=== PATIENT | female | born 1945 | race Caucasian/White ===

== ENCOUNTER → 2017-02-10 | Outpatient (CLI) | payer MEDICARE, OTHER ==
[~2017-02-10] MED LIST: ATEN-100 PO; ATEN25TA PO; BACL20TA PO; BENI20TA25 PO; DOXE100C4 PO; ESTR2TAB PO; GABA300 PO; GABA600T PO; HYDR-3583 PO; HYDR10TA16 PO; HYDR200T3 PO; LOSA100T3 PO; MELO15TA2 PO; PERC5TAB12 PO; PRAV40TA2 PO; PRAV80 OR; TRIA0.25 PO
--- NOTE | 2017-02-10 13:40 | RADRPT ---
EXAM DATE/TIME: 02/10/2017 13:20 [facility] COMPARISON: No previous studies available for comparison. INDICATIONS : Evalauate for pneumonia, pneumothorax or communicable disease. Pre op AAA repair. MEDICAL HISTORY : None. SURGICAL HISTORY : None. ENCOUNTER: Initial ACUITY: 1 day PAIN SCORE: 0/10 LOCATION: Bilateral chest FINDINGS: PA and lateral views of the chest demonstrate the lungs to be symmetrically aerated without evidence of mass, infiltrate or effusion. The cardiomediastinal contours are unremarkable. Encapsulated Osse ous structures are intact. CONCLUSION: Negative for an acute process. Cem Ch MD FACR on February 10, 2017 at 13:38 Board Certified Radiologist. This report was verified electronically.
[2017-02-10 13:57] LABS: HEMATOCRIT 39.8 % (35.0-46.0); MEAN CELL VOLUME 92.4 FL (80.0-100.0); MEAN CORPUSCULAR HEMOGLOBIN 30.4 PG (27.0-34.0); MEAN CORPUSCULAR HGB CONC 32.9 % (32.0-36.0); PLATELET COUNT 384 TH/MM3 (150-450); RED BLOOD COUNT 4.31 MIL/MM3 (4.00-5.30); RED CELL DISTRIBUTION WIDTH 14.3 % (11.6-17.2); REVIEW FLAG FINAL
[2017-02-10 14:03] LABS: INTERNATIONAL NORMALIZED RATIO 0.9 RATIO; PROTHROMBIN TIME - PATIENT 10.4 SEC (9.8-11.6)
[2017-02-10 14:17] LABS: BLOOD, URINE NEG (NEG); COMMENT (UR) CULT NOT INDICATED; CULTURE IF INDICATED CULT NOT INDICATED; GLUCOSE,URINE NEG (NEG); KETONE, URINE NEG (NEG); MUCUS URINE FEW /lpf (OCC); NITRITE,URINE NEG (NEG); PH, URINE 6.5 (5.0-8.5); SQUAMOUS EPITHELIAL CELL URINE 1 /hpf (0-5); URINE COLOR YELLOW (YELLW/STRAW)
[2017-02-10 14:28] LABS: POTASSIUM 4.5 MEQ/L (3.5-5.1)
--- NOTE | 2017-02-10 15:44 | EKG ---
Date Performed: 02/10/2017 Time Performed: 12:18:03 PTAGE: 71 years EKG: Sinus rhythm NORMAL ECG Compared to prior electrocardiogram, Premature atrial contraction no longer present. PREVIOUS TRACING : 10/26/1995 11.57 DOCTOR: Faisal Flores Interpretating Date/Time 02/10/2017 15:43:10
== END ==
LOC: CPRE 12:54
PROVIDERS: ATTEND Surgery
DX: Z01.810 Encounter for preprocedural cardiovascular examination (principal); Z01.811 Encounter for preprocedural respiratory examination; Z01.812 Encounter for preprocedural laboratory examination; I71.4 Abdominal aortic aneurysm, without rupture
CPT/HCPCS: 36415; 71020; 80048; 81001; 85027; 85610; 93005

== ENCOUNTER 2017-02-14 06:08 | Inpatient (IN) | payer MEDICARE, OTHER ==
[2017-02-14] VITALS (9 sets, daily range): BP systolic 107–142; BP diastolic 62–74; PULSE 61–72; RESP 14–16; TEMP 97.8–98; O2SAT 86–99
[~2017-02-14] VITALS: Ht 172.7 cm; Wt 77.5 kg
[~2017-02-14 06:08] MED LIST changes: -ATEN-100 PO; -BENI20TA25 PO; -GABA300 PO; -HYDR10TA16 PO; -MELO15TA2 PO; -PERC5TAB12 PO; -PRAV80 OR; -TRIA0.25 PO
[2017-02-14] MEDS ORDERED: POVIDONE IODINE 5% (ANTISEPSIS KIT) 4 APPLICATIONS EACH NARE PRN (06:30)
[2017-02-14] MEDS ORDERED: CHLORHEXIDINE GLUCONATE 2 % 1 PACK (2 CLOTHS) TOPICAL PRN (06:30)
[2017-02-14] MEDS ORDERED: METOPROLOL TARTRATE 25 MG TAB PO PRN (06:30)
[2017-02-14] MEDS ORDERED: LACTATED RINGER'S 1000 ML IV PRN (06:30)
[2017-02-14] MEDS ORDERED: SODIUM CHLORID 0.9% 500 ML IV PRN (06:30)
[2017-02-14] MEDS ORDERED: INSULIN HUMAN REGULAR 1,000 UNITS/10 ML VIAL SQ PRN (06:30)
[2017-02-14] MEDS ORDERED: THROMBIN (TOPICAL) 20,000 UNIT SPRAY KIT ONE (07:03)
[2017-02-14] MEDS ORDERED: HEPARIN SODIUM - SQ 10,000 UNITS/ML VIAL ONE ×2 (07:03→08:45)
[2017-02-14] MEDS ORDERED: VANCOMYCIN HCL 1000 MG VIAL ONE (07:03)
[2017-02-14] MEDS ORDERED: HEPARIN-NS/PF INJ 500 ML ONE (07:04)
[2017-02-14] MEDS ORDERED: ACETAMINOPHEN 1000 MG/100 ML 100 ML IV ONE (07:04)
[2017-02-14] MEDS ORDERED: ceFAZolin 2 GM PREMIX 0 ML ONE (07:04)
[2017-02-14] MEDS ORDERED: DEXMEDETOMIDINE HCL 200 MCG/2 ML VIAL ONE (07:05)
--- NOTE | 2017-02-14 07:20 | HHI.HP ---
History of Present Illness Chief Complaint: juxtarenal AAA History of Present Illness 71yo female with AAA that has been monitored for some time who has had increased AAA growth from 4.6 to 5.4 cm. No abdominal pain and no new back pain. Presents for elective repair using RP approach. Past/Family/Social History Past Medical History HTN XOL liver abscess associated with diverticulitis diverticulitis Jefferson's esophagus but pt denies reflux Past Surgical History VERONICA breast augmentation Social History + tobacco Family History no AAA Home Medications Reported Medications Doxepin (Doxepin) 100 Mg Cap, 100 MG PO HS, #30 CAP 0 Refills 02/10/17 Gabapentin (Gabapentin) 600 Mg Tab, 600 MG PO BID, #60 TAB 0 Refills 02/10/17 Hydrocodone-Acetaminophen (Hydrocodone-Acetaminophen) 10-325 mg Tab, 1 TAB PO Q4H Y for PAIN, TAB 0 Refills 02/10/17 Baclofen (Baclofen) 20 Mg Tab, 20 MG PO Q6HR for Muscle Spasm, TAB 0 Refills 02/10/17 Losartan-Hydrochlorothiazide (Losartan-Hydrochlorothiazide) 100-12.5 Mg Tab, 1 TAB PO DAILY for Blood Pressure Management, #30 TAB 0 Refills 02/10/17 Hydroxychloroquine (Hydroxychloroquine) 200 Mg Tab, 200 MG PO BID, #60 TAB 0 Refills Takw with food 02/10/17 Atenolol (Atenolol) 25 Mg Tab, 25 MG PO DAILY for Blood Pressure Management, # 30 TAB 02/10/17 Pravastatin (Pravastatin) 40 Mg Tab, 40 MG PO DAILY for Cholesterol Management, #30 TAB 0 Refills 02/10/17 Estradiol (Estradiol) 2 Mg Tab, 2 MG PO DAILY for Estrogen Supplements, #30 TAB 0 Refills 02/10/17 Discontinued Reported Medications Gabapentin (Neurontin) 300 Mg Cap, 300 MG PO TID 07/28/11 Pravastatin Sod (Pravastatin Sodium) 80 Mg Tab, 40 MG OR DAILY 07/28/11 Hydrocodone-Acetaminophen (Lortab 10) 10 Mg/500 Mg Tab, 1 TAB PO Q4-6HPRN FOR PAIN 07/28/11 Triazolam (Triazolam) 0.25 Mg Tab, 0.25 MG PO HS 07/28/11 Meloxicam (Mobic) 15 Mg Tab, 15 MG PO DAILY 07/28/11 Atenolol (Atenolol) 25 Mg Tab, 25 MG PO DAILY 07/28/11 Olmesartan Medoxomil (Benicar) 20 Mg Tab, 25 MG PO DAILY 07/28/11 Coded Allergies: ceftriaxone (Verified Allergy, Severe, 02/14/17) diclofenac (Verified Allergy, Severe, 02/14/17) methocarbamol (Verified Allergy, Severe, 02/14/17) morphine (Verified Allergy, Severe, 02/14/17) Review of Systems Constitutional: DENIES: Fever, Weight loss, Chills Cardiovascular: DENIES: Chest pain, Lower Extremity Edema, Orthopnea, Claudication Gastrointestinal: DENIES: Abdominal pain Musculoskeletal: COMPLAINS OF: Joint pain, Back pain Physical Exam Vitals/I&O Date Time Temp Pulse Resp B/P (MAP) Pulse Ox O2 Delivery O2 Flow Rate FiO2 02/14/17 06:52 98.6 69 20 115/72 (86) 94 Neuro: alert, oriented, no distress HEENT: NC/AT, wears glasses Neck: no JVD Trachea midline Heart: reg rate, no M Lungs: clear B Abdomen: nontender pulsatile midline abdominal mass Vascular: palpable femoral pulses Extremities: no C/C/E Hct 40 plt 384 INR 0.[address] reviewed - juxtarenal AAA Caprini VTE Risk Assessment Caprini VTE Risk Assessment: Mod/High Risk (score >= 2) Caprini Risk Assessment Model Point Value = 1 Point Value = 2 Point Value = 3 Point Value = 5 Age 41-60 Minor surgery BMI > 25 kg/m2 Swollen legs Varicose veins or History of unexplained or recurrent spontaneous Oral contraceptives or hormone replacement Sepsis (< 1 month) Serious lung disease, including pneumonia (< 1 month) Abnormal pulmonary function Acute myocardial infarction Congestive heart failure (< 1 month) History of inflammatory bowel disease Medical patient at bed rest Age 61-74 Arthroscopic surgery Major open surgery (> 45 min) Laparoscopic surgery (> 45 min) Malignancy Confined to bed (> 72 hours) Immobilizing plaster cast Central venous access Age >= 75 History of VTE Family history of VTE Factor V Leiden Prothrombin [id number] Lupus anticoagulant Anticardiolipin antibodies Elevated serum homocysteine Heparin-induced thrombocytopenia Other congenital or acquired thrombophilia Stroke (< 1 month) Elective arthroplasty Hip, pelvis, or leg fracture Acute spinal cord injury (< 1 month) Prophylaxis Regimen Total Risk Factor Score Risk Level Prophylaxis Regimen 0-1 Low Early ambulation 2 Moderate Order ONE of the following: *Sequential Compression Device (SCD) *Heparin 5000 units SQ BID 3-4 Higher Order ONE of the following medications: *Heparin 5000 units SQ TID *Enoxaparin/Lovenox 40 mg SQ daily (WT < 150 kg, CrCl > 30 mL/min) *Enoxaparin/Lovenox 30 mg SQ daily (WT < 150 kg, CrCl > 10-29 mL/min) *Enoxaparin/Lovenox 30 mg SQ BID (WT < 150 kg, CrCl > 30 mL/min) AND/OR *Sequential Compression Device (SCD) 5 or more Highest Order ONE of the following medications: *Heparin 5000 units SQ TID (Preferred with Epidurals) *Enoxaparin/Lovenox 40 mg SQ daily (WT < 150 kg, CrCl > 30 mL/min) *Enoxaparin/Lovenox 30 mg SQ daily (WT < 150 kg, CrCl > 10-29 mL/min) *Enoxaparin/Lovenox 30 mg SQ BID (WT < 150 kg, CrCl > 30 mL/min) AND *Sequential Compression Device (SCD) Assessment and Plan Plan OR for open juxtarenal AAA repair Discharge Planning [facility] [phone] (Lisa) Obed Edmonds MD Feb 14, 2017 07:20
[2017-02-14] MEDS ORDERED: SODIUM CHLORIDE 0.9% ONE (07:30)
[2017-02-14] MEDS ORDERED: NALOXONE HCL 0.4 MG/ML AMP IV PUSH PRN (07:30)
[2017-02-14] MEDS ORDERED: IRR ONE (07:30)
[2017-02-14] MEDS ORDERED: RIFAMPIN ONE (07:30)
[2017-02-14] MEDS ORDERED: HEPARIN SODIUM - IV 10,000 UNITS/10 ML VIAL ONE (07:55)
[2017-02-14] MEDS ORDERED: PROTAMINE SULFATE 50 MG/5 ML VIAL ONE ×2 (07:55→10:25)
[2017-02-14] MEDS: ESTRADIOL 1 MG TAB PO SCH (09:00)
[2017-02-14] MEDS: ASPIRIN 81 MG CHEW TAB PO SCH (09:00)
[2017-02-14] MEDS: PRAVASTATIN SOD 40 MG TAB PO SCH (09:00)
[2017-02-14] MEDS: FAMOTIDINE 20 MG/2 ML VIAL IV PUSH SCH ×2 (09:00→20:10)
[2017-02-14] MEDS ORDERED: HYDROmorphone HCL PF 2 MG/ML VIAL ONE (09:35)
[2017-02-14] MEDS ORDERED: NITROGLYCERIN-D5W 50 MG/250 ML 0 ML ONE (09:44)
--- NOTE | 2017-02-14 11:04 | HHI.PR ---
Immediate Post Op Note Procedure Date: Feb 14, 2017 Pre Op Diagnosis: Juxtarenal AAA Post Op Diagnosis: juxtarenal AAA Surgeon: Obed Edmonds Broadcast Transmitter Operator(s): Ramo Mishra, MS4 Procedure: Retroperiteonal repair of juxtarenal AAA (20mm tube graft) Supra-SMA x-clamp (16 minutes) Findings: successful repair with tube graft + Doppler signals B LE after unclamping Complications: none apparent Specimen(s) removed: none for pathology Estimated blood loss: 300mL Anesthesia: General Drains: None Fluids: 4500mL IVF Urinary Output (mLs): 750 Patient to: CVICU Patient Condition: Fair Implant/Devices: SEE IMPLANT LOG (if applicable) Date/Time of Procedure: SEE SURGICAL CARE RECORD Obed Edmonds MD Feb 14, 2017 11:04
[2017-02-14] MEDS ORDERED: DO NOT ADM ANY ANTICOAGULANT DRUGS PRN (11:57)
[2017-02-14] MEDS ORDERED: GLYCOPYRROLATE 1 MG/5 ML SYRINGE IV PUSH ONE (12:00)
[2017-02-14] MEDS ORDERED: ePHEDrine/NS 25 MG/5 ML SYR IV ONE (12:00)
[2017-02-14] MEDS: BACLOFEN 20 MG TAB PO SCH ×3 (12:00→23:11)
[2017-02-14] MEDS ORDERED: PROPOFOL 200 MG/20 ML AMP IV ONE (12:00)
[2017-02-14] MEDS ORDERED: SODIUM CHLOR 0.9% 250 ML INJ 250 ML IV ONE (12:00)
[2017-02-14] MEDS ORDERED: LIDOCAINE HCL 1% PF 5 ML AMPULE OTHER ONE (12:00)
[2017-02-14] MEDS ORDERED: ROCURONIUM INJ 50 MG/5 ML SYRINGE IV PUSH ONE (12:00)
[2017-02-14] MEDS ORDERED: ONDANSETRON HCL 4 MG/2 ML VIAL IV PUSH ONE (12:00)
[2017-02-14] MEDS ORDERED: SODIUM CHLORID 0.9% 500 ML INJ 500 ML IV ONE (12:00)
[2017-02-14] MEDS ORDERED: LACTATED RINGER'S 1000 ML INJ 2,000 ML IV ONE (12:00)
[2017-02-14] MEDS ORDERED: NEOSTIGMINE 3 MG/3 ML SYR IV ONE (12:00)
[2017-02-14] MEDS ORDERED: PHENYLEPH/NS 1000 MCG/10 ML SYR IV ONE (12:00)
[2017-02-14] MEDS ORDERED: NORMOSOL R INJ 3,000 ML IV ONE (12:00)
[2017-02-14] MEDS ORDERED: DEXAMETHASONE SOD PHOS 4 MG/ML VIAL IV ONE (12:00)
--- NOTE | 2017-02-14 12:06 | PD.CONS ---
HPI Service Critical Care Medicine Consult Requested By Dr. Edmonds Reason for Consult s/p Retroperitoneal repair of juxtarenal AAA with 20mm tube graft Primary Care Physician Wilton Mak MD History of Present Illness Patient is a 71 year old female with history of hypertension, dyslipidemia, tobacco abuse, AAA which increased from 4.6 to 5.4 cm. Underwent elective repair of AAA today using RP approach. Patient seen in PACU, extubated but drowsy from residual anesthesia. s/p Retroperitoneal repair of juxtarenal AAA with 20mm tube graft, supra-SMA cross-clamp for 16 min. Doppler signals positive bilateral LE after unclamping. EBL 300mL, received crystalloids 4.5 L, UO in OR 750 ml. Patient wakes up and tracks. Lab work pending at this time Review of Systems ROS Limitations: Clinical Condition (Post op, drowsy from residual anesthesia) Past Family Social History Allergies: Coded Allergies: ceftriaxone (Verified Allergy, Severe, 02/14/17) diclofenac (Verified Allergy, Severe, 02/14/17) methocarbamol (Verified Allergy, Severe, 02/14/17) morphine (Verified Allergy, Severe, 02/14/17) Past Medical History HTN Hyperlipidemia History of liver abscess associated with diverticulitis Jefferson's esophagus Past Surgical History VERONICA breast augmentation Reported Medications Doxepin 100 Mg Cap, 100 MG PO HS Gabapentin 600 Mg Tab, 600 MG PO BID [id number] mg Tab, 1 TAB PO Q4H PRN Baclofen 20 Mg Tab, 20 MG PO Q6HR f Losartan-Hydrochlorothiazide 100-12.5 Mg Tab, 1 TAB PO DAILY Hydroxychloroquine 200 Mg Tab, 200 MG PO BID Atenolol 25 Mg Tab, 25 MG PO DAILY Pravastatin 40 Mg Tab, 40 MG PO DAILY Estradiol 2 Mg Tab, 2 MG PO DAILY Active Ordered Medications Reviewed Family History I unable to verify as patient is drowsy Social History Active tobacco use per H&P Physical Exam Vital Signs Vital Signs Date Time Temp Pulse Resp B/P (MAP) Pulse Ox O2 Delivery O2 Flow Rate FiO2 02/14/17 06:52 98.6 69 20 115/72 (86) 94 Physical Exam Gen: Extubated, somnolent from residual sedation HEENT: NC/AT. 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 Aggressive pulmonary toilet. DuoNeb every 6 hours when necessary CV: - Postop management per Dr. Edmonds - Start aspirin daily continue pravastatin - Received 4.5 L crystalloids in the OR, urine output is adequate. - Continue D5 half-normal saline at 84 mL per hour - Check lactic acid GI: - Nothing by mouth until cleared by vascular surgery. Famotidine : - Monitor renal function closely. Gutierrez catheter. ID: - Perioperative antibiotics per Dr. Edmonds HEME: - Monitor CBC CMP coags ENDO: - Electrolyte replacement protocol PROPH: - Famotidine. Chemical DVT prophylaxis deferred to Dr. Edmonds LINES: - Patient has a right cordis and right radial art line placed in the OR Level 2 new consult Stefania Yadav MD Feb 14, 2017 12:06
[2017-02-14 12:21] LABS: HEMATOCRIT 30.9 % (35.0-46.0); MEAN CELL VOLUME 92.1 FL (80.0-100.0); MEAN CORPUSCULAR HGB CONC 32.6 % (32.0-36.0); PLATELET COUNT 282 TH/MM3 (150-450); RED BLOOD COUNT 3.35 MIL/MM3 (4.00-5.30); RED CELL DISTRIBUTION WIDTH 14.1 % (11.6-17.2); REVIEW FLAG FINAL; WHITE BLOOD COUNT 21.5 TH/MM3 (4.0-11.0)
[2017-02-14 12:32] LABS: PROTHROMBIN TIME - PATIENT 11.5 SEC (9.8-11.6)
[2017-02-14] MEDS: HYDROmorphone HCL PCA 6 MG/30 ML IV SCH ×2 (12:38→18:10)
[2017-02-14] MEDS: D5-1/2 NS + KCL 20 MEQ INJ 1,000 ML IV SCH ×2 (12:39→23:11)
[2017-02-14 12:46] LABS: BICARBONATE 29.4 MEQ/L (21.0-32.0); POTASSIUM 3.7 MEQ/L (3.5-5.1)
[2017-02-14 12:57] LABS: CALCIUM-PROTEIN CORRECTED 8.1 MG/DL (8.5-10.1)
--- NOTE | 2017-02-14 13:42 | RADRPT ---
EXAM DATE/TIME: 02/14/2017 12:34 [facility] COMPARISON: No previous studies available for comparison. INDICATIONS : Central Line Placement. MEDICAL HISTORY : None. SURGICAL HISTORY : None. ENCOUNTER: Initial ACUITY: 1 day PAIN SCORE: 0/10 LOCATION: Bilateral chest FINDINGS: There is increased interstitial markings bilaterally suggestive of pulmonary edema. There appear to b e 2 right-sided central lines in place adjacent to another. They appear to be in good position. The h eart size is upper limits of normal. There is an NG tube in the stomach. No significant pleural effus ions are seen. There is no pneumothorax. The bony structures are grossly intact. Calcified bilateral breast implants. Evidence of previous neck surgery. CONCLUSION: 1. The right-sided central lines appear to be in good position. No pneumothorax. 2. Pulmonary edema. Enrique Gibson MD on February 14, 2017 at 13:39 Board Certified Radiologist. This report was verified electronically.
[2017-02-14] MEDS: PCA - TOTAL MG DILAUDID DELIVERED PER SHIFT OTHER SCH ×2 (14:00→22:00)
[2017-02-14] MEDS: ACETAMINOPHEN 1000 MG/100 ML 100 ML IV SCH ×2 (15:34→20:10)
[2017-02-14] MEDS: hydrALAZINE HCL 20 MG/ML VIAL IV PUSH PRN ×2 (15:35→16:17)
[2017-02-14] MEDS: DOXEPIN HCL 50 MG CAP PO SCH (20:11)
[2017-02-15] VITALS (26 sets, daily range): BP systolic 106–154; BP diastolic 64–86; PULSE 69–95; RESP 16–20; TEMP 97.4–98.8; O2SAT 92–95
[2017-02-15] MEDS: HYDROmorphone HCL PCA 6 MG/30 ML IV SCH ×3 (02:46→19:54)
[2017-02-15] MEDS: ACETAMINOPHEN 1000 MG/100 ML 100 ML IV SCH ×4 (03:15→21:22)
[2017-02-15 04:33] LABS: HEMATOCRIT 31.5 % (35.0-46.0); MEAN CELL VOLUME 91.4 FL (80.0-100.0); MEAN CORPUSCULAR HEMOGLOBIN 30.2 PG (27.0-34.0); MEAN CORPUSCULAR HGB CONC 33.1 % (32.0-36.0); PLATELET COUNT 323 TH/MM3 (150-450); RED BLOOD COUNT 3.45 MIL/MM3 (4.00-5.30); RED CELL DISTRIBUTION WIDTH 14.2 % (11.6-17.2); REVIEW FLAG FINAL; WHITE BLOOD COUNT 17.7 TH/MM3 (4.0-11.0)
[2017-02-15 04:44] LABS: PROTHROMBIN TIME - PATIENT 11.2 SEC (9.8-11.6)
[2017-02-15 05:04] LABS: BICARBONATE 28.2 MEQ/L (21.0-32.0); POTASSIUM 4.3 MEQ/L (3.5-5.1)
[2017-02-15 05:18] LABS: CALCIUM-PROTEIN CORRECTED 8.1 MG/DL (8.5-10.1)
--- NOTE | 2017-02-15 05:28 | MP ---
cc: DARIEN EDMONDS MD DATE OF SURGERY 02/14/2017 PREOPERATIVE DIAGNOSIS Juxtarenal abdominal aortic aneurysm. POSTOPERATIVE DIAGNOSIS Juxtarenal abdominal aortic aneurysm. PROCEDURE Retroperitoneal approach to juxtarenal aortic aneurysm with a 20-mm Dacron graft. ATTENDING SURGEON Darien Edmonds MD RETAIL PERSONAL BANKER SURGEON Ramo Mishra, MS4. INDICATIONS Ms. Ozuna is a 71-year-old lady who has a 5.4 cm juxtarenal abdominal aortic aneurysm that had grown to 8 mm in the last 6 months. She has no new abdominal pain but was offered an elective repair. Intraoperatively it was found that the aneurysm extended to the base of the renal arteries and was repaired with a tube graft. DESCRIPTION OF PROCEDURE Informed consent was obtained from the patient. She was taken to the operating room and placed supine on the operating room table. An appropriate time-out was taken to ensure the patient's identity, the operative site and planned procedure. 1 gram of vancomycin was initiated prior to the skin incision and will be discontinued after a single preoperative dose. Vancomycin was chosen because of the patient's CEPHALOSPORIN ALLERGY. Everyone in the room agreed with the time-out and we proceeded. She was placed in thoracoabdominal position with all pressure points carefully padded and was prepped from her axillae to her knees. An incision was made in one of the patient's left flank, carried down in the subcutaneous tissue with electrocautery. The oblique muscles were divided with electrocautery. The peritoneum was identified and swept medially. Retroperitoneal space was created and a Bookwalter retractor was set up. The ureter was kept medial at all times and the aorta was identified. We dissected the aorta up to the cephalad aspect of the aneurysm. The left renal artery was identified and was kept anterior. The tiffanie of the diaphragm was taken down and we dissected the aorta around the SMA and celiac. A plane was then created at the base of the SMA and distally we dissected the aorta down to the bilateral common iliac arteries which were circumferentially dissected. The patient was systemically heparinized. Distal, then proximal control of the aorta was obtained by placing transplant profunda clamps on the common iliac arteries and a Zinger clamp in the aorta above the renal arteries. This was done after the patient was systemically heparinized. The aorta was incised and opened longitudinally. A 20-mm Dacron was brought up onto the field and sewn end-to-end proximally with 3-0 Prolene sutures, end-to-end distally with 3-0 Prolene suture. At the distal aspect, the [place] aorta was endarterectomized to facilitate placement of the suture. Carefully the clamps were released and both anastomoses were noted to be hemostatic. There were nice Doppler signals in the feet. The heparin was reversed with protamine. The wound was irrigated, made hemostatic. The aortic aneurysm itself was then reapproximated as a biological covering around the graft. The retroperitoneal contents were allowed to return to their normal anatomic location and the muscle and fascia were reapproximated with two layers of #1 looped PDS suture. The skin was then closed with 2-0 Polysorb and 4-0 Monocryl. The sponge and needle counts were correct at the end of the case. I was prepped and scrubbed and performed the entire procedure. Both the groin wounds were made hemostatic and closed with 2-0 Polysorb, 3-0 Polysorb and 4-0 Monocryl. At the conclusion of the case, the patient had palpable pedal pulses. There were no complications. I was present and scrubbed for the entire procedure. MD CHAYITO Dee/BRIGIDO /4:27 AM /5:00 AM MTDMckenzie
--- NOTE | 2017-02-15 05:57 | PD.VS.PN ---
Subjective POD #: 1 Procedure(s): open juxtarenal AAA repair Subjective/Hospital Course doing well; c/o sore throat and incisional pain otherwise looks wonderful Objective Vitals/I&O Date Time Temp Pulse Resp B/P (MAP) Pulse Ox O2 Delivery O2 Flow Rate FiO2 02/15/17 05:00 80 02/15/17 04:00 86 02/15/17 04:00 94 Simple Mask 10.00 02/15/17 03:00 76 02/15/17 03:00 98.1 76 18 106/64 (78) 92 112/64 (80) 02/15/17 02:46 16 02/15/17 02:00 77 02/15/17 02:00 89 Nasal Cannula 6.00 02/15/17 01:00 70 02/15/17 00:00 92 Nasal Cannula 4.00 02/15/17 00:00 69 02/14/17 23:00 97.9 68 16 142/73 (96) 94 116/71 (86) 02/14/17 23:00 68 02/14/17 22:00 68 02/14/17 22:00 16 02/14/17 21:00 66 02/14/17 20:00 70 02/14/17 19:00 98.0 72 16 125/64 (84) 95 117/74 (88) 02/14/17 19:00 95 Nasal Cannula 6.00 02/14/17 18:10 16 02/14/17 15:00 96 Nasal Cannula 6.00 02/14/17 15:00 98.0 66 16 107/62 (77) 94 134/63 (86) 02/14/17 15:00 66 02/14/17 14:00 99 Nasal Cannula 5.00 02/14/17 14:00 16 02/14/17 13:00 95 Non-Rebreather 15.00 02/14/17 13:00 99 Non-Rebreather 100 02/14/17 13:00 61 02/14/17 12:55 97.8 61 14 125/72 (89) 86 134/63 (86) 02/14/17 12:38 15 02/14/17 12:30 97.8 65 14 124/68 (86) 94 Nasal Cannula 3 02/14/17 12:15 66 17 124/70 (88) 95 Nasal Cannula 3 02/14/17 12:00 72 16 113/63 (80) 95 Nasal Cannula 3 02/14/17 11:51 97.6 74 19 96/55 (69) 94 Simple Mask 6 02/14/17 06:52 98.6 69 20 115/72 (86) 94 02/15/17 02/15/17 02/15/17 07:00 15:00 23:00 Intake Total 1000 ml Balance 1000 ml Exam: No distress FM O2 but no SOB L flank incision c/d/i neuro intact Laboratory Laboratory Tests Test 02/14/17 12:04 02/15/17 04:15 White Blood Count 21.5 17.7 Red Blood Count 3.35 3.45 Hemoglobin 10.1 10.4 Hematocrit 30.9 31.5 Mean Corpuscular Volume 92.1 91.4 Mean Corpuscular Hemoglobin 30.0 30.2 Mean Corpuscular Hemoglobin Concent 32.6 33.1 Red Cell Distribution Width 14.1 14.2 Platelet Count 282 323 Mean Platelet Volume 7.2 7.3 Prothrombin Time 11.5 11.2 Prothromb Time International Ratio 1.0 1.0 Blood Urea Nitrogen 11 12 Creatinine 0.58 0.62 Random Glucose 119 116 Total Protein 5.7 5.7 Calcium Level 7.3 7.3 Sodium Level 137 136 Potassium Level 3.7 4.3 Chloride Level 100 101 Carbon Dioxide Level 29.4 28.2 Anion Gap 8 7 Estimat Glomerular Filtration Rate 103 95 Lactic Acid Level 1.4 Protein Corrected Calcium 8.1 8.1 Assessment and Plan Plan POD#1 s/p juxtarenal AAA repair, looks good; creatinine stable; Hct ok 1. D/C NGT but keep NPO except ice chips 2. OOB TC 3. Ok to d/c A-line 4. D/C Gutierrez 5. Recheck AML tomorrow Discharge Planning daughter [phone] (Lisa) Obed Edmonds MD Feb 15, 2017 05:57
[2017-02-15] MEDS: BACLOFEN 20 MG TAB PO SCH ×4 (06:00→23:31)
[2017-02-15] MEDS: PCA - TOTAL MG DILAUDID DELIVERED PER SHIFT OTHER SCH ×3 (06:00→22:34)
--- NOTE | 2017-02-15 08:44 | HHI.CCPN ---
Subjective Remarks/Hospital Course Patient is a 71 year old female with history of hypertension, dyslipidemia, tobacco abuse, AAA which increased from 4.6 to 5.4 cm. Underwent elective repair of AAA today using RP approach. Patient seen in PACU, extubated but drowsy from residual anesthesia. s/p Retroperitoneal repair of juxtarenal AAA with 20mm tube graft, supra-SMA cross-clamp for 16 min. Doppler signals positive bilateral LE after unclamping. EBL 300mL, received crystalloids 4.5 L, UO in OR 750 ml. Patient wakes up and tracks. Lab work pending at this time SUBJ 02/15/17: Sitting up in bed, no acute distress. UO excellent. Hemoglobin stable. Peripheral pulses + Objective Vital Signs Date Time Temp Pulse Resp B/P (MAP) Pulse Ox O2 Delivery O2 Flow Rate FiO2 02/15/17 08:00 78 02/15/17 07:00 98.5 16 123/75 (91) 95 Arterial Line 02/15/17 07:00 Nasal Cannula 6.00 02/14/17 13:00 100 Intake and Output 02/15/17 02/15/17 02/16/17 08:00 16:00 00:00 Intake Total 0 ml Output Total 1025 ml Balance -1025 ml Result Diagram: 02/15/17 0415 02/15/[address] with 5.4 AAA Objective Remarks Gen: Lying in bed in no acute distress HEENT: NC/AT. 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 Adequate pain control RESP: - Nasal cannula oxygen. Aggressive pulmonary toilet. DuoNeb every 6 hours when necessary CV: - Postop management per Dr. Edmonds - Aspirin daily, continue pravastatin - Received 4.5 L crystalloids in the OR, urine output is adequate. - Continue D5 half-normal saline at 84 mL per hour - Lactic acid normal GI: - Nothing by mouth except ice chips. Famotidine : - Monitor renal function closely. ID: - Perioperative antibiotics per Dr. Edmonds HEME: - Monitor CBC CMP coags ENDO: - Electrolyte replacement protocol PROPH: - Famotidine. Chemical DVT prophylaxis deferred to Dr. Edmonds. Up to chair LINES: - Patient has a right cordis and right radial art line placed in the OR-DC both Level 2 Ok to transfer to step down Stefania Yadav MD Feb 15, 2017 08:44
[2017-02-15] MEDS: ESTRADIOL 1 MG TAB PO SCH (08:45)
[2017-02-15] MEDS: FAMOTIDINE 20 MG/2 ML VIAL IV PUSH SCH ×2 (08:45→21:19)
[2017-02-15] MEDS: ASPIRIN 81 MG CHEW TAB PO SCH (08:46)
[2017-02-15] MEDS: PRAVASTATIN SOD 40 MG TAB PO SCH (08:46)
[2017-02-15] MEDS ORDERED: INFLUENZA VIRUS VACCINE (QUADRIVALENT) 0.5 ML SYR IM ONE (09:00)
[2017-02-15] MEDS: D5-1/2 NS + KCL 20 MEQ INJ 1,000 ML IV SCH ×2 (10:10→21:20)
[2017-02-15] MEDS: ENOXAPARIN SODIUM 30 MG/0.3 ML SYRINGE SQ SCH (13:22)
[2017-02-15] MEDS: DOXEPIN HCL 50 MG CAP PO SCH (21:19)
[2017-02-16] VITALS (32 sets, daily range): BP systolic 102–135; BP diastolic 58–68; PULSE 79–118; RESP 17–19; TEMP 98.1–98.7; O2SAT 93–97
[2017-02-16] MEDS: ACETAMINOPHEN 1000 MG/100 ML 100 ML IV SCH ×2 (03:00→08:17)
[2017-02-16 03:44] LABS: HEMATOCRIT 27.8 % (35.0-46.0); MEAN CELL VOLUME 91.1 FL (80.0-100.0); MEAN CORPUSCULAR HEMOGLOBIN 30.3 PG (27.0-34.0); MEAN CORPUSCULAR HGB CONC 33.3 % (32.0-36.0); PLATELET COUNT 281 TH/MM3 (150-450); RED BLOOD COUNT 3.05 MIL/MM3 (4.00-5.30); RED CELL DISTRIBUTION WIDTH 14.2 % (11.6-17.2); REVIEW FLAG FINAL; WHITE BLOOD COUNT 16.9 TH/MM3 (4.0-11.0)
[2017-02-16 04:16] LABS: BICARBONATE 27.1 MEQ/L (21.0-32.0); POTASSIUM 3.9 MEQ/L (3.5-5.1)
[2017-02-16 04:38] LABS: CALCIUM-PROTEIN CORRECTED 8.2 MG/DL (8.5-10.1)
[2017-02-16] MEDS: HYDROmorphone HCL PCA 6 MG/30 ML IV SCH ×3 (05:14→20:44)
[2017-02-16] MEDS: BACLOFEN 20 MG TAB PO SCH ×4 (05:55→23:10)
[2017-02-16] MEDS: PCA - TOTAL MG DILAUDID DELIVERED PER SHIFT OTHER SCH ×3 (05:56→22:00)
[2017-02-16] MEDS: PRAVASTATIN SOD 40 MG TAB PO SCH (08:15)
[2017-02-16] MEDS: ASPIRIN 81 MG CHEW TAB PO SCH (08:15)
[2017-02-16] MEDS: ESTRADIOL 1 MG TAB PO SCH (08:15)
[2017-02-16] MEDS: FAMOTIDINE 20 MG/2 ML VIAL IV PUSH SCH ×2 (08:16→20:36)
[2017-02-16] MEDS: D5-1/2 NS + KCL 20 MEQ INJ 1,000 ML IV SCH ×2 (09:31→21:21)
--- NOTE | 2017-02-16 09:49 | PD.VS.PN ---
Subjective POD #: 2 Procedure(s): open juxtarenal AAA repair Subjective/Hospital Course Pt in bed reported she had a BM this am Pt doing well w/o c/o abdominal/back pain No nausea or vomiting reported Pt c/o mild incisional pain Objective Vitals/I&O Date Time Temp Pulse Resp B/P (MAP) Pulse Ox O2 Delivery O2 Flow Rate FiO2 02/16/17 07:01 87 02/16/17 06:02 91 02/16/17 05:56 22 02/16/17 05:22 82 02/16/17 05:14 18 02/16/17 04:36 79 02/16/17 03:50 82 02/16/17 03:50 98.3 89 17 129/67 (87) 94 02/16/17 02:15 81 02/16/17 01:49 95 02/16/17 00:14 95 02/15/17 23:51 77 02/15/17 23:51 98.0 95 18 126/64 (84) 92 02/15/17 22:34 19 02/15/17 22:00 88 02/15/17 22:00 18 02/15/17 21:00 82 02/15/17 20:00 84 02/15/17 19:54 19 02/15/17 19:45 83 02/15/17 19:45 94 Nasal Cannula 2.00 02/15/17 19:40 98.8 85 17 134/66 (88) 93 02/15/17 18:00 90 02/15/17 17:00 90 02/15/17 16:00 82 02/15/17 15:00 98.0 82 20 154/86 (108) 94 02/15/17 15:00 88 02/15/17 14:45 18 02/15/17 14:31 18 02/15/17 14:11 18 02/15/17 14:10 87 02/15/17 14:08 18 02/15/17 14:00 18 02/15/17 13:00 92 02/15/17 12:00 83 02/15/17 11:00 97.4 83 20 154/86 (108) 95 02/15/17 10:00 78 02/16/17 02/16/17 02/16/17 07:00 15:00 23:00 Intake Total 990 ml Output Total 525 ml Balance 465 ml Exam: GENERAL: afebrile 71/F SKIN: Warm and dry Incision to Left side of abdomen intact with surgical glue closure w/o R/D/S GASTROINTESTINAL: Abdomen soft, non-tender, nondistended. MUSCULOSKELETAL: No cyanosis, or edema. Laboratory Laboratory Tests Test 02/16/17 03:30 White Blood Count 16.9 Red Blood Count 3.05 Hemoglobin 9.3 Hematocrit 27.8 Mean Corpuscular Volume 91.1 Mean Corpuscular Hemoglobin 30.3 Mean Corpuscular Hemoglobin Concent 33.3 Red Cell Distribution Width 14.2 Platelet Count 281 Mean Platelet Volume 7.4 Blood Urea Nitrogen 9 Creatinine 0.46 Random Glucose 113 Total Protein 5.6 Calcium Level 7.4 Sodium Level 134 Potassium Level 3.9 Chloride Level 101 Carbon Dioxide Level 27.1 Anion Gap 6 Estimat Glomerular Filtration Rate 134 Protein Corrected Calcium 8.2 Assessment and Plan Assessment: (1) S/P AAA repair (2) AAA (abdominal aortic aneurysm) Plan POD#2 s/p juxtarenal AAA repair looks good Pt reported BM this am Pt w/o nausea, vomiting, abdominal or back pain Plan D/C CL after IV access obtained OOB/TC/ ambulation as tolerated Clear liquid diet Jeanne CAMEJO [facility] [phone] Discharge Planning D/C Planning Daughter [phone] (Jeanne Toro Feb 16, 2017 09:49
[2017-02-16] MEDS: ENOXAPARIN SODIUM 30 MG/0.3 ML SYRINGE SQ SCH (11:30)
[2017-02-16] MEDS: DOXEPIN HCL 50 MG CAP PO SCH (20:36)
[2017-02-17] VITALS (32 sets, daily range): BP systolic 91–123; BP diastolic 51–67; PULSE 78–102; RESP 16–18; TEMP 97.4–98.8; O2SAT 90–97
[2017-02-17] MEDS: BACLOFEN 20 MG TAB PO SCH ×4 (05:10→23:21)
[2017-02-17] MEDS: PCA - TOTAL MG DILAUDID DELIVERED PER SHIFT OTHER SCH ×3 (06:00→22:00)
[2017-02-17] MEDS: HYDROmorphone HCL PCA 6 MG/30 ML IV SCH ×2 (06:36→17:28)
[2017-02-17] MEDS: FAMOTIDINE 20 MG/2 ML VIAL IV PUSH SCH ×2 (08:22→20:49)
[2017-02-17] MEDS: PRAVASTATIN SOD 40 MG TAB PO SCH (08:22)
[2017-02-17] MEDS: ESTRADIOL 1 MG TAB PO SCH (08:22)
[2017-02-17] MEDS: ASPIRIN 81 MG CHEW TAB PO SCH (08:22)
--- NOTE | 2017-02-17 08:54 | PD.VS.PN ---
Subjective POD #: 3 Procedure(s): open juxtarenal AAA repair Subjective/Hospital Course Pt in chair alert in NAD Pain controlled Pt doing well w/o c/o abdominal/back pain No nausea or vomiting reported Pt c/o mild incisional pain Objective Vitals/I&O Date Time Temp Pulse Resp B/P (MAP) Pulse Ox O2 Delivery O2 Flow Rate FiO2 02/17/17 06:36 19 02/17/17 06:05 18 02/17/17 06:05 79 02/17/17 06:00 18 02/17/17 05:20 102 02/17/17 04:10 93 02/17/17 03:15 83 02/17/17 03:15 98.8 96 18 99/59 (72) 97 02/17/17 02:39 86 02/17/17 01:35 89 02/17/17 00:00 86 02/16/17 23:54 89 02/16/17 23:45 98.5 87 18 102/62 (75) 97 02/16/17 22:00 19 02/16/17 22:00 102 02/16/17 22:00 19 02/16/17 21:00 114 02/16/17 20:44 21 02/16/17 20:15 94 Nasal Cannula 3.00 02/16/17 20:00 98 02/16/17 19:50 102 02/16/17 19:45 96 Nasal Cannula 2.00 02/16/17 19:45 98.7 93 19 128/64 (85) 93 02/16/17 19:00 98 02/16/17 18:00 118 02/16/17 17:00 88 02/16/17 16:06 93 Nasal Cannula 2.00 02/16/17 16:00 98 02/16/17 15:45 98.4 90 18 130/68 (88) 95 02/16/17 15:00 84 02/16/17 14:00 90 02/16/17 13:00 80 02/16/17 12:36 18 02/16/17 12:00 88 02/16/17 11:30 98.1 88 18 125/58 (80) 96 02/16/17 11:00 91 02/16/17 10:01 81 02/16/17 09:00 86 02/17/17 02/17/17 02/17/17 07:00 15:00 23:00 Intake Total 1072 ml Output Total 200 ml Balance 872 ml Exam: GENERAL: afebrile 71/F SKIN: Warm and dry Incision to Left side of abdomen intact with surgical glue closure w/o R/D/S GASTROINTESTINAL: Abdomen soft, non-tender, nondistended. MUSCULOSKELETAL: No cyanosis, or edema. Assessment and Plan Assessment: (1) S/P AAA repair (2) AAA (abdominal aortic aneurysm) Plan POD #3 s/p juxtarenal AAA repair looks good, ambulated hallway yesterday Pt w/o nausea, vomiting, abdominal or back pain Plan D/C MIVF OOB/TC/ ambulation as tolerated Regular diet Jeanne CAMEJO [facility]/[employer] [phone] Discharge Planning D/C Planning 2-3 days Daughter [phone] (Lisa) Jeanne Brock Feb 17, 2017 08:54
[2017-02-17] MEDS: ENOXAPARIN SODIUM 30 MG/0.3 ML SYRINGE SQ SCH (10:43)
[2017-02-17] MEDS: DOXEPIN HCL 50 MG CAP PO SCH (20:48)
[2017-02-18] VITALS (30 sets, daily range): BP systolic 112–152; BP diastolic 55–87; PULSE 78–118; RESP 16–20; TEMP 97.9–98.9; O2SAT 91–98
[2017-02-18] MEDS: BACLOFEN 20 MG TAB PO SCH ×3 (04:50→19:16)
[2017-02-18] MEDS: PCA - TOTAL MG DILAUDID DELIVERED PER SHIFT OTHER SCH (06:00)
--- NOTE | 2017-02-18 06:31 | PD.VS.PN ---
Subjective POD #: 4 Procedure(s): open juxtarenal AAA repair Subjective/Hospital Course c/o abdominal soreness but otherwise looks great ambulating pau full liq but not reg diet because of new dentures Objective Vitals/I&O Date Time Temp Pulse Resp B/P (MAP) Pulse Ox O2 Delivery O2 Flow Rate FiO2 02/18/17 06:06 16 02/18/17 06:03 79 02/18/17 06:00 16 02/18/17 05:46 78 02/18/17 04:11 78 02/18/17 03:48 84 02/18/17 03:45 97.9 84 16 112/87 (95) 98 02/18/17 02:08 85 02/18/17 01:11 90 02/18/17 00:10 83 02/17/17 23:33 86 02/17/17 23:33 98.0 90 18 106/51 (69) 94 02/17/17 22:35 16 02/17/17 22:07 96 02/17/17 22:00 16 02/17/17 21:18 95 Nasal Cannula 02/17/17 21:00 96 02/17/17 20:15 90 02/17/17 19:42 85 02/17/17 19:34 98.1 92 16 91/52 (65) 92 02/17/17 19:34 92 Nasal Cannula 3.00 02/17/17 18:00 85 02/17/17 17:31 16 02/17/17 17:00 98 02/17/17 16:00 90 02/17/17 15:25 97.8 93 16 108/64 (79) 95 02/17/17 15:00 87 02/17/17 14:03 18 02/17/17 14:00 98 02/17/17 13:00 87 02/17/17 12:00 92 02/17/17 11:20 97.4 81 16 103/53 (70) 94 02/17/17 11:00 78 02/17/17 10:00 85 02/17/17 09:41 92 Nasal Cannula 2.00 02/17/17 09:00 95 02/17/17 08:00 90 02/17/17 07:50 98.1 97 18 123/67 (85) 90 02/17/17 07:50 90 Nasal Cannula 2.00 02/17/17 07:00 80 02/17/17 06:36 19 02/18/17 02/18/17 02/18/17 07:00 15:00 23:00 Intake Total 240 ml Output Total 700 ml Balance -460 ml Exam: no abdominal tenderness L flank incision c/d/i Assessment and Plan Assessment: (1) S/P AAA repair (2) AAA (abdominal aortic aneurysm) Plan POD #4 s/p juxtarenal AAA repair Looks great D/C [employer]PAR[employer]ER transition to all po meds d/c planning Discharge Planning Sun/Mon Daughter [phone] (Lisa) Obed Edmonds MD Feb 18, 2017 06:31
[2017-02-18] MEDS ORDERED: HYDROmorphone HCL 2 MG TAB PO PRN ×2 (06:45)
[2017-02-18] MEDS: PRAVASTATIN SOD 40 MG TAB PO SCH (08:56)
[2017-02-18] MEDS: FAMOTIDINE 20 MG/2 ML VIAL IV PUSH SCH ×2 (08:56→21:35)
[2017-02-18] MEDS: ESTRADIOL 1 MG TAB PO SCH (08:56)
[2017-02-18] MEDS: ASPIRIN 81 MG CHEW TAB PO SCH (08:56)
[2017-02-18] MEDS: ENOXAPARIN SODIUM 30 MG/0.3 ML SYRINGE SQ SCH (11:57)
[2017-02-18] MEDS: DOXEPIN HCL 50 MG CAP PO SCH (21:35)
[2017-02-19] VITALS (27 sets, daily range): BP systolic 140–158; BP diastolic 64–77; PULSE 58–94; RESP 12–18; TEMP 97.8–99.3; O2SAT 93–96
[2017-02-19] MEDS: BACLOFEN 20 MG TAB PO SCH ×4 (00:18→18:08)
[2017-02-19] MEDS: PRAVASTATIN SOD 40 MG TAB PO SCH (09:18)
[2017-02-19] MEDS: ASPIRIN 81 MG CHEW TAB PO SCH (09:18)
[2017-02-19] MEDS: ESTRADIOL 1 MG TAB PO SCH (09:18)
--- NOTE | 2017-02-19 10:14 | PD.VS.PN ---
Subjective POD #: 5 Procedure(s): open juxtarenal AAA repair Subjective/Hospital Course looks great still relatively debilitated pau liq but no much solids secondary to dentures - staying hydrated OOB to bathroom only Objective Vitals/I&O Date Time Temp Pulse Resp B/P (MAP) Pulse Ox O2 Delivery O2 Flow Rate FiO2 02/19/17 07:21 93 Nasal Cannula 2.00 02/19/17 07:21 97.8 73 18 140/67 (91) 93 02/19/17 07:21 73 02/19/17 06:08 71 02/19/17 05:00 70 02/19/17 04:15 77 02/19/17 03:20 98.7 84 18 142/69 (93) 94 02/19/17 03:06 85 02/19/17 02:09 82 02/19/17 01:25 89 02/19/17 00:46 77 02/18/17 23:30 98 02/18/17 23:15 98.6 82 20 114/55 (74) 96 02/18/17 22:00 98 02/18/17 21:00 90 02/18/17 20:20 96 02/18/17 19:20 98.8 101 18 144/65 (91) 97 02/18/17 19:20 97 Nasal Cannula 2.00 02/18/17 19:20 93 02/18/17 18:00 92 02/18/17 17:00 110 02/18/17 16:00 118 02/18/17 15:30 98.9 95 20 152/73 (99) 94 02/18/17 15:30 95 02/18/17 15:00 96 02/18/17 14:00 96 02/18/17 13:00 96 02/18/17 12:00 94 02/18/17 11:30 98.9 79 18 140/65 (90) 91 02/18/17 11:30 79 02/18/17 11:00 86 02/19/17 02/19/17 02/19/17 07:00 15:00 23:00 Intake Total 480 ml Output Total 550 ml Balance -70 ml Exam: resting comfortably COATES abdomen mildly tender, appropriate L flank incision c/d/i Assessment and Plan Assessment: (1) S/P AAA repair (2) AAA (abdominal aortic aneurysm) Plan POD #5 s/p juxtarenal AAA repair Looks great resume transdermal fentanyl (home med) PT/OOB diet ad valarie Discharge Planning Monday - home with HH vs rehab Daughter [phone] (Lisa) Obed Edmonds MD Feb 19, 2017 10:13
[2017-02-19] MEDS ORDERED: fentaNYL 75 MCG/HR PATCH T-DERMAL SCH (11:00)
[2017-02-19] MEDS: ENOXAPARIN SODIUM 30 MG/0.3 ML SYRINGE SQ SCH (12:37)
[2017-02-19] MEDS: FAMOTIDINE 20 MG TAB PO SCH (18:08)
[2017-02-19] MEDS: DOXEPIN HCL 50 MG CAP PO SCH (21:07)
[2017-02-20] VITALS (11 sets, daily range): BP systolic 138–148; BP diastolic 67–82; PULSE 65–108; RESP 13–19; TEMP 97.7–98.4; O2SAT 93–96
[2017-02-20] MEDS: BACLOFEN 20 MG TAB PO SCH ×3 (00:34→11:11)
[2017-02-20] MEDS: FAMOTIDINE 20 MG TAB PO SCH (05:52)
[2017-02-20] MEDS: ASPIRIN 81 MG CHEW TAB PO SCH (08:02)
[2017-02-20] MEDS: ESTRADIOL 1 MG TAB PO SCH (08:02)
[2017-02-20] MEDS: PRAVASTATIN SOD 40 MG TAB PO SCH (08:02)
--- NOTE | 2017-02-20 08:42 | PD.VS.PN ---
Subjective POD #: 6 Procedure(s): open juxtarenal AAA repair Subjective/Hospital Course Pt alert in NAD Pt w/o complaints Pt denies abdominal/back pain Objective Vitals/I&O Date Time Temp Pulse Resp B/P (MAP) Pulse Ox O2 Delivery O2 Flow Rate FiO2 02/20/17 08:00 84 02/20/17 07:00 97.7 91 18 148/67 (94) 96 02/20/17 07:00 96 Nasal Cannula 2.00 02/20/17 07:00 82 02/20/17 06:02 66 02/20/17 05:58 67 02/20/17 04:50 14 02/20/17 03:00 82 02/20/17 03:00 98.1 84 13 138/68 (91) 96 02/20/17 02:00 65 02/20/17 01:00 75 02/20/17 00:00 68 02/19/17 23:00 59 02/19/17 23:00 98.3 59 13 154/70 (98) 96 02/19/17 22:00 58 02/19/17 21:00 65 02/19/17 20:00 72 02/19/17 20:00 70 02/19/17 19:00 98.6 66 12 154/70 (98) 95 02/19/17 19:00 Nasal Cannula 2.00 02/19/17 19:00 62 02/19/17 18:00 94 02/19/17 17:00 84 02/19/17 16:00 90 02/19/17 15:27 99.3 85 16 158/77 (104) 96 02/19/17 15:27 85 02/19/17 15:00 80 02/19/17 14:00 80 02/19/17 13:00 80 02/19/17 12:45 80 02/19/17 12:45 98.4 82 18 151/64 (93) 96 02/19/17 12:00 80 02/19/17 11:00 88 02/19/17 10:00 86 02/19/17 09:00 76 02/20/17 02/20/17 02/20/17 07:00 15:00 23:00 Intake Total 240 ml Output Total 690 ml Balance -450 ml Exam: GENERAL: Afebrile 71/F SKIN: Warm and dry Incision to L side of abdomen intact with surgical glue closure/ No R/D/S NECK: Supple, trachea midline. No JVD or lymphadenopathy. CARDIOVASCULAR: RRR/+ S1, S2 RESPIRATORY: BS CTA GASTROINTESTINAL: Abdomen soft, non-tender, nondistended. MUSCULOSKELETAL: No cyanosis, or edema. Pulses: Palpable L/R DP Assessment and Plan Assessment: (1) S/P AAA repair (2) AAA (abdominal aortic aneurysm) Plan POD #6 s/p juxtarenal AAA repair Looks great Pt tolerating PO Pt w/o abdominal/back pain Plan Pt to be d/c'd this am Arranged Out Patient f/u Jeanne CAMEJO [id number] Discharge Planning D/C today Pt refusing HHS/Rehab at this time stated she will call if needed Daughter [phone] (Lisa) Jeanne Brock Feb 20, 2017 08:42
[2017-02-20] MEDS ORDERED: PERC5TAB12 PO (08:47)
--- NOTE | 2017-02-20 08:56 | PD.VS.DC ---
Discharge Summary Admission Date: Feb 14, 2017 at 06:08 Discharge Date: Feb 20, 2017 Admission Diagnosis: (1) AAA (abdominal aortic aneurysm) Discharge Diagnosis: (1) S/P AAA repair ICD Codes: Z98.890 - Other specified postprocedural states; Z86.79 - Personal history of other diseases of the circulatory system (2) AAA (abdominal aortic aneurysm) ICD Codes: I71.4 - Abdominal aortic aneurysm, without rupture Brief History from admission 71yo female with AAA that has been monitored for some time who has had increased AAA growth from 4.6 to 5.4 cm. No abdominal pain and no new back pain. Presents for elective repair using RP approach. Procedure(s): open juxtarenal AAA repair Significant Findings GENERAL: Afebrile 71/F SKIN: Warm and dry Incision to L side of abdomen intact with surgical glue closure/ No R/D/S NECK: Supple, trachea midline. No JVD or lymphadenopathy. CARDIOVASCULAR: RRR/+ S1, S2 RESPIRATORY: BS CTA GASTROINTESTINAL: Abdomen soft, non-tender, nondistended. MUSCULOSKELETAL: No cyanosis, or edema Palpable R/L DP LE warm with motor intact Hospital Course: 71yo female with AAA that has been monitored for some time who has had increased AAA growth from 4.6 to 5.4 cm. No abdominal pain and no new back pain. Presents for elective repair using RP approach POD 6 pt w/o complications Pt tolerating PO well Pt ambulating well Pt w/o back/abdominal pain Arranged Post op f/u Allergies Coded Allergies Type Severity Reaction Last Updated Verified ceftriaxone Allergy Severe 02/14/17 Yes diclofenac Allergy Severe 02/14/17 Yes methocarbamol Allergy Severe 02/14/17 Yes morphine Allergy Severe 02/14/17 Yes 02/18/17 02/18/17 02/19/17 02/19/17 02/20/17 02/20/17 06:00 18:00 06:00 18:00 06:00 18:00 Intake Total 240 ml 480 ml 480 ml 780 ml 240 ml Output Total 700 ml 700 ml 550 ml 500 ml 690 ml Balance -460 ml -220 ml -70 ml 280 ml -450 ml Intake Oral 240 ml 480 ml 480 ml 780 ml 240 ml Output Urine Total 700 ml 700 ml 550 ml 500 ml 690 ml # Voids 3 1 2 # Bowel Movements 0 0 0 1 Orders Procedure Category Date Status Time Hydromorphone MED 02/18/17 In Process (Dilaudid) 06:45 Hydromorphone MED 02/18/17 In Process (Dilaudid) 06:45 Fentanyl 75 Mcg MED 02/19/17 In Process Patch.72 Hr (Duragesic 11:00 Remove Old Patch MED 02/22/17 In Process 11:00 Famotidine (Pepcid) MED 02/19/17 In Process 18:00 Attending Discharge DISCHARGE 02/20/17 Transmitted Order Vital Signs Date Time Temp Pulse Resp B/P (MAP) Pulse Ox O2 Delivery O2 Flow Rate FiO2 02/20/17 08:00 84 02/20/17 07:00 97.7 91 18 148/67 (94) 96 02/20/17 07:00 96 Nasal Cannula 2.00 02/20/17 07:00 82 02/20/17 06:02 66 02/20/17 05:58 67 02/20/17 04:50 14 02/20/17 03:00 82 02/20/17 03:00 98.1 84 13 138/68 (91) 96 02/20/17 02:00 65 02/20/17 01:00 75 02/20/17 00:00 68 02/19/17 23:00 59 02/19/17 23:00 98.3 59 13 154/70 (98) 96 02/19/17 22:00 58 02/19/17 21:00 65 02/19/17 20:00 72 02/19/17 20:00 70 02/19/17 19:00 98.6 66 12 154/70 (98) 95 02/19/17 19:00 Nasal Cannula 2.00 02/19/17 19:00 62 02/19/17 18:00 94 02/19/17 17:00 84 02/19/17 16:00 90 02/19/17 15:27 99.3 85 16 158/77 (104) 96 02/19/17 15:27 85 02/19/17 15:00 80 02/19/17 14:00 80 02/19/17 13:00 80 02/19/17 12:45 80 02/19/17 12:45 98.4 82 18 151/64 (93) 96 02/19/17 12:00 80 02/19/17 11:00 88 02/19/17 10:00 86 02/19/17 09:00 76 02/19/17 08:00 72 02/19/17 07:21 93 Nasal Cannula 2.00 02/19/17 07:21 97.8 73 18 140/67 (91) 93 02/19/17 07:21 73 02/19/17 06:08 71 02/19/17 05:00 70 02/19/17 04:15 77 02/19/17 03:20 98.7 84 18 142/69 (93) 94 02/19/17 03:06 85 02/19/17 02:09 82 02/19/17 01:25 89 02/19/17 00:46 77 02/18/17 23:30 98 02/18/17 23:15 98.6 82 20 114/55 (74) 96 02/18/17 22:00 98 02/18/17 21:00 90 02/18/17 20:20 96 02/18/17 19:20 98.8 101 18 144/65 (91) 97 02/18/17 19:20 97 Nasal Cannula 2.00 02/18/17 19:20 93 02/18/17 18:00 92 02/18/17 17:00 110 02/18/17 16:00 118 02/18/17 15:30 98.9 95 20 152/73 (99) 94 02/18/17 15:30 95 02/18/17 15:00 96 02/18/17 14:00 96 02/18/17 13:00 96 02/18/17 12:00 94 02/18/17 11:30 98.9 79 18 140/65 (90) 91 02/18/17 11:30 79 02/18/17 11:00 86 02/18/17 10:05 95 Nasal Cannula 3.00 02/18/17 10:00 82 02/18/17 09:00 94 02/18/17 08:00 84 02/18/17 07:30 81 02/18/17 07:30 95 Nasal Cannula 2.00 02/18/17 06:06 16 02/18/17 06:03 79 02/18/17 06:00 16 02/18/17 05:46 78 02/18/17 04:11 78 02/18/17 03:48 84 02/18/17 03:45 97.9 84 16 112/87 (95) 98 02/18/17 02:08 85 02/18/17 01:11 90 02/18/17 00:10 83 02/17/17 23:33 86 02/17/17 23:33 98.0 90 18 106/51 (69) 94 02/17/17 22:35 16 02/17/17 22:07 96 02/17/17 22:00 16 02/17/17 21:18 95 Nasal Cannula 02/17/17 21:00 96 02/17/17 20:15 90 02/17/17 19:42 85 02/17/17 19:34 98.1 92 16 91/52 (65) 92 02/17/17 19:34 92 Nasal Cannula 3.00 02/17/17 18:00 85 02/17/17 17:31 16 02/17/17 17:00 98 02/17/17 16:00 90 02/17/17 15:25 97.8 93 16 108/64 (79) 95 02/17/17 15:00 87 02/17/17 14:03 18 02/17/17 14:00 98 02/17/17 13:00 87 02/17/17 12:00 92 02/17/17 11:20 97.4 81 16 103/53 (70) 94 02/17/17 11:00 78 02/17/17 10:00 85 02/17/17 09:41 92 Nasal Cannula 2.00 02/17/17 09:00 95 Discharge Condition: Good Discharge Disposition: Discharge Home Discharge Instructions: Arranged Post Op f/u Activities as tolerated Continue a daily walking regimen Continue a heart healthy diet May SHOWER NO TUB BATHS/Swimming until abdominal incision is fully healed Do not apply any creams of ointments to incision site as it may loosen the surgical glue Call the office to report any redness, swelling or drainage to incision site Jeanne CAMEJO [facility]/[place] [phone] Any questions or concerns: Call [facility] Surgery at [facility] [phone] Jeanne Brock Feb 20, 2017 08:56
[2017-02-20] MEDS: ENOXAPARIN SODIUM 30 MG/0.3 ML SYRINGE SQ SCH (11:11)
[2017-02-22] MEDS ORDERED: REMOVE OLD DURAGESIC (FENTANYL) PATCH T-DERMAL SCH (11:00)
== END 2017-02-20 11:32 | disposition home or self-care (01) | DRG 272 ==
LOC: HSDI 06:08 → HCVI 13:20 → HCPC 02-15 11:10
PROVIDERS: ADMIT Surgery; ATTEND Surgery
PROC: 04V00DZ Restriction of Abdominal Aorta with Intraluminal Device, Open Approach (ICD-10-PCS; principal; 2017-02-14 07:43)
DX: I71.4 Abdominal aortic aneurysm, without rupture (principal); I10 Essential (primary) hypertension; E78.5 Hyperlipidemia, unspecified; M79.7 Fibromyalgia; F17.210 Nicotine dependence, cigarettes, uncomplicated; F32.9 Major depressive disorder, single episode, unspecified; Z23 Encounter for immunization; Z88.1 Allergy status to other antibiotic agents; Z88.5 Allergy status to narcotic agent
CPT/HCPCS: 36430; 71010; 76937; 80048; 83605; 84155; 85027; 85610; 86850; 86900; 86901; 86920; 86927; 90686; 94150; 94667; C1768; J0131; J0360; J0690; J1100; J1170; J1644; J1650; J2370; J2405; J2710; J2720; J3010; J3370; J3480; J7040; J7050; J7120; P9017; Q2038